=== PATIENT | female | born 1970 | race Caucasian/White ===

== ENCOUNTER 2018-11-06 16:52 | Inpatient (IN) ==
[2018-11-06] MEDS ORDERED: SODIUM CHLORIDE 0.9% 1,000 ML IV STA ×2 (18:09→18:39)
[2018-11-06 18:16] LABS: Basophils % 0.3 % (0.0-0.8); Eosinophils % 0.4 % (0.00-10.9); Hemoglobin 11.3 GM/DL (12.0-16.0); Immature Granulocytes % 0.4 %; Immature Granulocytes Absolute 0.03 #; Lymphocytes % 14.4 % (21.3-54.2); Mean Corpuscular HGB Conc 30.5 GM/DL (32-36); Mean Corpuscular Hemoglobin 25 PG (27-34); Mean Corpuscular Volume 80.3 FL (87-102); Mean Platelet Volume 9.4 FL (9.6-12.0); Monocytes # 0.6 10*3/uL (0.11-0.8); Neutrophils # 5.3 10*3/uL (1.4-7.4); Neutrophils % 75.5 % (38.7-73.9); Platelet Count 271 T/CUMM (130-400); Red Blood Count 4.61 MC/CUMM (3.8-5.5); Red Cell Distribution Width 15.3 % (9.3-17.3)
[2018-11-06 18:23] LABS: INR 0.9; PT Patient Result 9.9 SECS
[2018-11-06 18:32] LABS: Alanine Aminotransferase 21 U/L (13-56); Albumin 2.7 G/DL (3.4-5.0); Alkaline Phosphatase 132 U/L (45-117); Aspartate Amino Transferase 13 U/L (0-37); Bilirubin,Total < 0.39 MG/DL (0.2-1.0); Blood Urea Nitrogen 11 MG/DL (7-18); Osmolality,Calculated 289.2 MOS/KG (273-304); Potassium 3.2 MMOL/L (3.5-5.1); Sodium 127 MMOL/L (136-145); Total Protein 8.2 G/DL (6.4-8.3); Troponin I < 0.015 NG/ML (0.00-0.045)
[2018-11-06 18:34] LABS: Glucose 742 MG/DL (74-106)
[2018-11-06] MEDS ORDERED: INSULIN REGULAR 100 UNIT/ML SUBCUT STA (18:38)
[2018-11-06] MEDS ORDERED: INSULIN REGULAR 100 UNIT/ML IV STA (18:38)
[2018-11-06] MEDS ORDERED: INSULIN REGULAR DRIP 100 ML IV PRN (19:08)
[2018-11-06 19:21] LABS: Barbiturates Screen,Urine Negative (Negative); Benzodiazepines Screen,Urine Negative (Negative); Cannabinoid Screen,Urine Negative (Negative); Opiate Screen,Urine Negative (Negative); Phencyclidine Screen,Urine Negative (Negative)
[2018-11-06 19:22] LABS: Apearance,Urine CLOUDY (Clear); Bacteria,Urine Few /HPF (Few); Bilirubin,Urine Negative (Negative); Blood, Urine Moderate mg/dL (Negative); Glucose,Urine (UA) >=500 mg/dL (Negative); Ketones,Urine Negative (Negative); Mucus,Urine Occasional /LPF (Occasional); Nitrite,Urine Negative (Negative); Protein,Urine Negative; RBC,Urine 28 /HPF (0-4); Squamous Epithelial Cell,Urine Moderate /HPF (0-10); Urine Specific Gravity 1.023 (1.001-1.035); Urine Urobilinogen < 2.0 EU/DL (0.2-1.0); WBC,Urine 15 /HPF (0-6)
[2018-11-06 19:24] LABS: Urine Color Straw (Yellow)
[2018-11-06] MEDS ORDERED: SODIUM CHLORIDE 0.9% 2,000 ML IV ONE (20:00)
[2018-11-06] MEDS ORDERED: ONDANSETRON 4 MG/2 ML VIAL IV PRN (20:19)
[2018-11-06] MEDS ORDERED: ENOXAPARIN 30 MG/0.3 ML SYRINGE SUBCUT SCH (21:00)
[2018-11-06] MEDS ORDERED: SODIUM CHLORIDE 0.9% 1,000 ML IV SCH (22:00)
[2018-11-06] MEDS: INSULIN GLARGINE 100 UNIT/ML SUBCUT SCH (22:03)
[2018-11-06] MEDS: PANTOPRAZOLE 40 MG VIAL IV SCH (22:03)
[2018-11-06] MEDS: POTASSIUM CHLORIDE 20 MEQ TABLET PO SCH (22:03)
[2018-11-06] MEDS ORDERED: DEXTROSE 50% 25 GM/50 ML SYRINGE IV PRN (22:37)
[2018-11-06] MEDS: DEXTROSE 5% NACL 0.9% 1,000 ML IV SCH (22:46)
[2018-11-07] MEDS: POTASSIUM CHLORIDE 20 MEQ TABLET PO SCH ×7 (01:41→21:17)
[2018-11-07 04:24] LABS: Blood Urea Nitrogen 10 MG/DL (7-18); Glucose 137 MG/DL (74-106); Osmolality,Calculated 279.4 MOS/KG (273-304); Potassium 2.7 MMOL/L (3.5-5.1); Sodium 140 MMOL/L (136-145); Troponin I < 0.015 NG/ML (0.00-0.045)
[2018-11-07] MEDS: DEXTROSE 5% NACL 0.9% 1,000 ML IV SCH (04:31)
[2018-11-07 04:34] LABS: Basophils % 0.3 % (0.0-0.8); Eosinophils # 0.1 10*3/uL (0.0-0.87); Eosinophils % 0.9 % (0.00-10.9); Hematocrit 29.2 VOL% (35.7-47.0); Immature Granulocytes % 0.9 %; Immature Granulocytes Absolute 0.06 #; Lymphocytes # 1.3 10*3/uL (1.4-4.0); Lymphocytes % 19.5 % (21.3-54.2); Mean Corpuscular HGB Conc 30.1 GM/DL (32-36); Mean Corpuscular Hemoglobin 24 PG (27-34); Mean Corpuscular Volume 80.4 FL (87-102); Mean Platelet Volume 9.1 FL (9.6-12.0); Monocytes # 0.6 10*3/uL (0.11-0.8); Neutrophils # 4.4 10*3/uL (1.4-7.4); Neutrophils % 69.4 % (38.7-73.9); Platelet Count 218 T/CUMM (130-400); Red Cell Distribution Width 15.4 % (9.3-17.3); White Blood Count 6.4 T/CUMM (4-12)
[2018-11-07] MEDS ORDERED: MAGNESIUM SULF RIDER 2 GM in PREMIX 1 EACH IV PRN (04:36)
[2018-11-07 04:42] LABS: Hemoglobin 8.8 GM/DL (12.0-16.0); Red Blood Count 3.63 MC/CUMM (3.8-5.5)
[2018-11-07] MEDS: POTASSIUM CHLORIDE RIDER 10 MEQ in PREMIX 1 EACH IV PRN ×4 (05:00→07:57)
[2018-11-07] MEDS ORDERED: MAGNESIUM SULF RIDER 2 GM in PREMIX 1 EACH IV ONE (08:05)
[2018-11-07] MEDS: INSULIN LISPRO 100 UNIT/ML SUBCUT SCH ×4 (08:43→21:15)
[2018-11-07] MEDS ORDERED: INSULIN NPH/REGULAR 70/30 100 UNIT/ML SUBCUT SCH (09:00)
[2018-11-07] MEDS: LEVOFLOXACIN INJ 750 MG in PREMIX 1 EACH IV SCH (09:13)
[2018-11-07] MEDS: NON-FORMULARY MEDICATION (Dolutegravir Sodium [Tivicay] 50 MG) PO SCH (09:18)
[2018-11-07] MEDS: [UNRECOGNIZED DRUG - OTHER] PO SCH (09:18)
[2018-11-07] MEDS: GABAPENTIN 300 MG CAPSULE PO SCH ×2 (09:19→21:18)
[2018-11-07] MEDS: INSULIN NPH/REGULAR 70/30 100 UNIT/ML SUBCUT SCH ×2 (09:19→21:16)
[2018-11-07] MEDS: LEVOTHYROXINE 50 MCG TABLET PO SCH (09:20)
[2018-11-07] MEDS: FLUoxetine 20 MG CAPSULE PO SCH (09:20)
[2018-11-07] MEDS: ASPIRIN EC 81 MG TABLET PO SCH (09:22)
[2018-11-07] MEDS: PANTOPRAZOLE 40 MG VIAL IV SCH (09:23)
[2018-11-07] MEDS: SODIUM CHLORIDE 0.9% 1,000 ML IV SCH (09:29)
[2018-11-07] MEDS: GENTAMICIN INJ 120 MG in PREMIX 1 EACH IV SCH ×2 (10:11→21:28)
[2018-11-07] MEDS: GLIMEPIRIDE 4 MG TABLET PO SCH (17:18)
[2018-11-07] MEDS ORDERED: ENOXAPARIN 40 MG/0.4 ML SYRINGE SUBCUT SCH (21:00)
[2018-11-07] MEDS: INSULIN GLARGINE 100 UNIT/ML SUBCUT SCH (21:14)
[2018-11-08] MEDS: POTASSIUM CHLORIDE 20 MEQ TABLET PO SCH (00:31)
[2018-11-08] MEDS: SODIUM CHLORIDE 0.9% 1,000 ML IV SCH ×2 (00:33→07:43)
[2018-11-08] MEDS: INSULIN LISPRO 100 UNIT/ML SUBCUT SCH ×3 (00:50→08:46)
[2018-11-08 05:19] LABS: Basophils % 0.2 % (0.0-0.8); Eosinophils # 0.1 10*3/uL (0.0-0.87); Eosinophils % 1.2 % (0.00-10.9); Hemoglobin 8.7 GM/DL (12.0-16.0); Immature Granulocytes % 0.6 %; Immature Granulocytes Absolute 0.03 #; Lymphocytes # 1.2 10*3/uL (1.4-4.0); Lymphocytes % 24.4 % (21.3-54.2); Mean Corpuscular Hemoglobin 25 PG (27-34); Mean Corpuscular Volume 82.9 FL (87-102); Mean Platelet Volume 8.6 FL (9.6-12.0); Monocytes # 0.5 10*3/uL (0.11-0.8); Monocytes % 9.3 % (1.7-12.7); Neutrophils # 3.2 10*3/uL (1.4-7.4); Neutrophils % 64.3 % (38.7-73.9); Platelet Count 210 T/CUMM (130-400); Red Cell Distribution Width 15.9 % (9.3-17.3); White Blood Count 4.9 T/CUMM (4-12)
[2018-11-08 05:39] LABS: Calcium 7.9 MG/DL (8.5-10.1); Osmolality,Calculated 274.4 MOS/KG (273-304); Potassium 3.7 MMOL/L (3.5-5.1)
[2018-11-08 07:29] VITALS: BP 103/62
[2018-11-08] MEDS: PANTOPRAZOLE 40 MG VIAL IV SCH (08:53)
[2018-11-08] MEDS: LEVOTHYROXINE 50 MCG TABLET PO SCH (08:53)
[2018-11-08] MEDS: INSULIN NPH/REGULAR 70/30 100 UNIT/ML SUBCUT SCH (08:53)
[2018-11-08] MEDS: GABAPENTIN 300 MG CAPSULE PO SCH (08:54)
[2018-11-08] MEDS: FLUoxetine 20 MG CAPSULE PO SCH (08:54)
[2018-11-08] MEDS: GLIMEPIRIDE 4 MG TABLET PO SCH (08:54)
[2018-11-08] MEDS: LEVOFLOXACIN INJ 750 MG in PREMIX 1 EACH IV SCH (08:54)
[2018-11-08] MEDS: [UNRECOGNIZED DRUG - OTHER] PO SCH (08:55)
[2018-11-08] MEDS: NON-FORMULARY MEDICATION (Dolutegravir Sodium [Tivicay] 50 MG) PO SCH (08:55)
[2018-11-08] MEDS: ASPIRIN EC 81 MG TABLET PO SCH (08:55)
== END 2018-11-08 10:40 | disposition home or self-care (01) | DRG 638 ==
LOC: N.ED 16:52 → N.EDINP 19:03 → SUATTDRO 19:03 → N.CC 19:36 → N.5E 11-07 13:54
PROVIDERS: ADMIT Internal Medicine; ATTEND Internal Medicine